=== PATIENT | female | born 2000 | race Caucasian/White ===

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

== ENCOUNTER 2025-10-27 01:26 | Inpatient (IN) ==
[2025-10-27] MEDS ORDERED: LIDOCAINE 1% LOCAL 20 ML VIAL INFIL PRN (02:28)
[2025-10-27 02:58] LABS: Hematocrit (blood only) 30.0 % (37.0-47.0); Hemoglobin 10.4 g/dL (12.0-16.0); Mean Corpuscular Hemoglobin 30.0 pg (25.0-34.0); Mean Corpuscular Volume 86.5 fL (80.0-100.0); Platelet Count 259 K/uL (130-400); RDW Standard Deviation 40.4 fL (36.4-46.3); Red Blood Count 3.47 M/uL (4.20-5.40); White Blood Count 12.58 K/ul (4.8-10.8)
--- NOTE | 2025-10-27 03:05 | History & Physical Report ---
Date of Service October 27, 2025 Assessment & Plan (1) Normal labor: Plan: Pt is a 24yo who presents at 39w3d with contractions. Amnisure negative Cvx /-1 per RN check (previously 3cm in office, rating pain at a 10), will admit for labor FHT reassuring Epidural PRN GBS neg, Rh pos, RI Anticipate History of Present Illness Chief Complaint: contractions, leaking fluid Primary Care Provider: Lizzeth Hines DO Patient is a 24yo who presents at 39w3d with leaking fluid and contractions. Via answering service phone call, patient had reported contractions every 10 minutes and concern for water leaking, states it was good amount of fluid. Reports she lost her mucus plug earlier in the day. Denies bleeding. +FM. complicated by: surrogacy using home insemination kit, threatened labor at 32 weeks (resolved), and cigarette use during . Allergies Allergy/AdvReac Type Severity Reaction Status Date / Time No Known Allergies Allergy Verified 10/27/25 01:49 Home Medications Medication Instructions Recorded Confirmed Type vitamins no.144-folic 1 tab PO DAILY 03/19/25 10/27/25 History acid 400 mcg chewable tablet () ferrous sulfate 325 mg (65 mg 325 mg PO Q OTHER DAY 09/11/25 10/27/25 History iron) tablet Patient History Medical History (Updated 10/27/25 @ 03:02 by Morelia Hagen MD) No known health problems Surgical History H/O dilation and curettage (2013) Family History Grandfather (Maternal) Diabetes Hypertension Mother Hypertension Social History Smoking Status: Current every day smoker Tobacco Type: Cigarettes Age Started Using Tobacco: 8; Cigarettes Per Day: 6; Second Hand Exposure: Yes; Hx Alcohol Use: No Hx Substance Use: No Preferred Language: French Communication Ability: Effective Director Of Strategic Initiatives Required: No Beliefs That Will Affect Care: None marital status: Single marital status details: Ritika Benito [phone] (Intended Mom) Current Living Situation: Family Current Living Situation Comment: lives with mom and 2 children, no pets. current occupational status: unemployed Other Information That Helps Us Care for You: No Feels Safe at Home: Yes Diet: regular Assistive Devices: Glasses Review of Systems see HPI Physical Exam Constitutional: WD/WN, vitals as above Genitourinary: Manual OB Exam: + cervical dilation (RN check) 5 cm, + cervical effacement 70% and + station -1 OB Exam Monitor Tracing: + external FHT monitor used, + external uterine monitor used and + category I Results & Data Vital Signs (Past 12 Hours) Vital Signs Temp Pulse Resp BP 10/27/25 01:55 85 109/59 L 10/27/25 01:50 36.6 C 20 Coding Level of Care Code None Diagnoses Normal labor O80; Z37.9
[2025-10-27] MEDS: LACTATED RINGER'S 1,000 ML IV PRN (04:27)
[2025-10-27] MEDS ORDERED: diphenhydrAMINE 50 MG/ML VIAL IV PRN (04:57)
[2025-10-27] MEDS ORDERED: ROPIVACAINE 0.5% PF 5 MG/ML 20 ML VIAL EPI PRN (04:57)
[2025-10-27] MEDS ORDERED: NALBUPHINE HCL INJ 10 MG/ML AMP IV PRN (04:57)
[2025-10-27] MEDS ORDERED: SODIUM CHLORIDE 0.9% PF INJ 10 ML VIAL EPI PRN (04:57)
[2025-10-27] MEDS ORDERED: ONDANSETRON INJ 2 MG/ML 2 ML VIAL IV PRN (04:57)
[2025-10-27] MEDS ORDERED: NALOXONE HCL 0.4 MG/1 ML VIAL/CARP IV PRN (04:57)
[2025-10-27] MEDS ORDERED: NALOXONE HCL 1 MG in SODIUM CHLORIDE 0.9% 1,000 ML IV PRN (04:57)
[2025-10-27] MEDS ORDERED: LIDOCAINE 2% MPF LOCAL 5 ML VIAL EPI PRN (04:57)
[2025-10-27] MEDS ORDERED: BUPIVACAINE 0.25% PF 30 ML VIAL EPI PRN (04:57)
--- NOTE | 2025-10-27 04:58 | Anesthesiology Consultation ---
Date of Service October 27, 2025 Assessment & Plan ASA ASA2 Proposed Anesthesia Anesthesia Type: Labor Epidural Risk / Benefits Reviewed With: PT / POA / Parent / Guardian, Accepts Plan and Informed Consent Obtained History Height/Weight Height: 5 ft 2 in Weight: 70.398 kg Allergies Allergy/AdvReac Type Severity Reaction Status Date / Time No Known Allergies Allergy Verified 10/27/25 01:49 Medications Home Medications Medication Instructions Recorded Confirmed Last Taken vitamins no.144-folic 1 tab PO DAILY 03/19/25 10/27/25 10/26/25 acid 400 mcg chewable tablet () ferrous sulfate 325 mg (65 mg 325 mg PO Q OTHER DAY 09/11/25 10/27/25 10/26/25 iron) tablet Active Medications Generic Name Dose Route Start Last Admin Trade Name Freq PRN Reason Stop Dose Admin Fentanyl/Bupivacaine/Sodium Chlor 100 ml 10/27/25 04:57 10/27/25 05:18 Fentanyl 2 Mcg/Ml Bupivacaine 0.125%-Nss 100ml Bag EPI 10/28/25 04:56 100 ml PRN PRN Administration Pain R/T Labor Protocol Lactated Ringer's 1,000 mls @ 125 mls/hr 10/27/25 02:28 10/27/25 05:04 Lr IV 10/29/25 02:27 125 mls/hr .Q8H PRN Infusion L&D Protocol Protocol Past Medical History Medical History No known health problems Exercise / Class Metabolic Activity II 4-5 Yardwork/Stairs/Walk up hill Past Family History Family History Grandfather (Maternal) Diabetes Hypertension Mother Hypertension Past Surgical History Surgical History H/O dilation and curettage (2013) Past Anesthesia History No Hx of Anesthesia Complications and No Family Hx of Anesthesia Complications History of PONV No Hx of PONV and No Hx of Motion Sickness Social History Smoking Status: Current every day smoker Smoking cigarettes per day: 6 Hx Alcohol Use: No Hx Substance Use: No substance use type: does not use and former substance user Last Used Substance Other:: states 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 Review of Systems denies fever/cough/ colds/ chest pain/ SOB/ RUTH ANN denies RUTH ANN Physical Exam Vital Signs Last Vital Signs Temp 36.6 C 10/27/25 01:50 Pulse 88 10/27/25 05:26 Resp 20 10/27/25 01:50 BP 109/63 10/27/25 05:24 Pulse Ox 96 10/27/25 05:26 ENMT Mouth: no TMJ abnormality and no dentition abnormality Thyromental Distance: > or= 3.5 Finger Breadths Mallampati Class: II Neck neck extension not limited Respiratory normal respiratory effort; no respiratory distress Auscultation: lungs clear to auscultation bilaterally Cardiovascular Rate/Rhythm: regular rate and regular rhythm Neurologic moves all extremities Psychiatric Orientation: alert and oriented x 3 Testing Laboratory Results 10/27/25 02:39
[2025-10-27] MEDS: fentANYL 2 MCG/ML BUPIVacaine 0.125%-NSS 100ML BAG EPI PRN (05:18)
[2025-10-27] MEDS: LIDOCAINE 2%/EPINEPHRINE 1:200,000 20 ML PF EPI STA (05:18)
[2025-10-27] MEDS: BUPIVACAINE 0.25% PF 30 ML VIAL EPI STA (05:18)
[2025-10-27] MEDS: fentANYL 2 MCG/ML BUPIVacaine 0.125%-NSS 100ML BAG ONE (07:06)
[2025-10-27] MEDS: SODIUM CHLORIDE 0.9% PF INJ 10 ML VIAL ONE (07:06)
[2025-10-27] MEDS: LIDOCAINE 2%/EPINEPHRINE 1:200,000 20 ML PF ONE (07:06)
[2025-10-27] MEDS: SODIUM CHLORIDE 0.9% PF INJ 10 ML VIAL EPI STA (07:06)
[2025-10-27] MEDS: BUPIVACAINE 0.25% PF 30 ML VIAL ONE (07:06)
--- NOTE | 2025-10-27 07:29 | Labor Progress Brief Note ---
Date of Service October 27, 2025 Subjective Comfortable with epidural. Assessment & Plan (1) Normal labor: Plan: Pt is a 24yo who presents at 39w3d admitted for labor. s/p AROM s/p epidural FHT reassuring Epidural PRN GBS neg, Rh pos, RI Anticipate Admission and Anticipated Discharge Date Admission Date: October 27, 2025 Physical Exam Constitutional: WD/WN, vitals as above Genitourinary: Manual OB Exam: + cervical dilation 7 cm, + cervical effacement 80% and + station -1 OB Exam Monitor Tracing: + external FHT monitor used, + external uterine monitor used and + category I AROM performed in normal sterile fashion with head well applied to cervix. Return of moderate clear fluid. Pt tolerated well. Results & Data Vital Signs (Past 12 Hours) Vital Signs Temp Pulse Resp BP Pulse Ox 10/27/25 07:21 81 98 10/27/25 07:19 88 122/62 10/27/25 07:16 75 98 10/27/25 07:11 84 98 10/27/25 07:06 83 97 10/27/25 07:04 72 115/60 10/27/25 07:01 87 97 10/27/25 06:56 82 97 10/27/25 06:51 72 97 10/27/25 06:49 76 113/61 10/27/25 06:46 88 98 10/27/25 06:43 75 94 10/27/25 06:41 83 97 10/27/25 06:36 82 98 10/27/25 06:35 85 113/58 L 10/27/25 06:31 76 98 10/27/25 06:26 89 98 10/27/25 06:21 85 98 10/27/25 06:19 88 102/55 L 10/27/25 06:16 86 97 10/27/25 06:11 87 97 10/27/25 06:06 88 97 10/27/25 06:02 91 H 103/57 L 10/27/25 06:01 90 97 10/27/25 05:56 77 98 10/27/25 05:55 84 117/67 10/27/25 05:51 83 99 10/27/25 05:50 78 112/61 10/27/25 05:46 86 97 10/27/25 05:45 84 137/57 L 10/27/25 05:41 96 10/27/25 05:41 86 10/27/25 05:41 85 100/57 L 10/27/25 05:36 86 102/52 L 97 10/27/25 05:31 85 101/51 L 96 10/27/25 05:26 88 96 10/27/25 05:24 92 H 109/63 10/27/25 05:22 87 105/60 10/27/25 05:21 88 97 10/27/25 05:20 89 103/60 10/27/25 05:18 85 109/64 10/27/25 05:16 97 10/27/25 05:16 96 H 10/27/25 05:16 93 H 125/67 10/27/25 05:14 84 127/70 10/27/25 05:11 78 99 10/27/25 05:06 75 100 10/27/25 05:01 77 95 10/27/25 04:56 76 95 10/27/25 04:51 75 96 10/27/25 04:46 86 95 10/27/25 04:41 72 96 10/27/25 04:36 78 96 10/27/25 04:31 82 96 10/27/25 04:26 86 96 10/27/25 01:55 85 109/59 L 10/27/25 01:50 36.6 C 20 Coding Level of Care Code None Diagnoses Normal labor O80; Z37.9
--- NOTE | 2025-10-27 08:01 | Labor Progress Brief Note ---
Date of Service October 27, 2025 Subjective Starting to feel pressure, but comfortable with epidural. FHT Cat 1 Hartrandt Q 2 SVE 7/100/0 Continue labor. Assessment & Plan Admission and Anticipated Discharge Date Admission Date: October 27, 2025 Results & Data Vital Signs (Past 12 Hours) Vital Signs Temp Pulse Resp BP Pulse Ox 10/27/25 07:56 79 97 10/27/25 07:51 76 98 10/27/25 07:49 78 125/73 10/27/25 07:46 78 98 10/27/25 07:41 81 97 10/27/25 07:36 75 97 10/27/25 07:34 86 127/73 10/27/25 07:31 83 99 10/27/25 07:30 20 10/27/25 07:30 36.6 C 20 10/27/25 07:26 86 97 10/27/25 07:21 81 98 10/27/25 07:19 88 122/62 10/27/25 07:16 75 98 10/27/25 07:11 84 98 10/27/25 07:06 83 97 10/27/25 07:04 72 115/60 10/27/25 07:01 87 97 10/27/25 06:56 82 97 10/27/25 06:51 72 97 10/27/25 06:49 76 113/61 10/27/25 06:46 88 98 10/27/25 06:43 75 94 10/27/25 06:41 83 97 10/27/25 06:36 82 98 10/27/25 06:35 85 113/58 L 10/27/25 06:31 76 98 10/27/25 06:26 89 98 10/27/25 06:21 85 98 10/27/25 06:19 88 102/55 L 10/27/25 06:16 86 97 10/27/25 06:11 87 97 10/27/25 06:06 88 97 10/27/25 06:02 91 H 103/57 L 10/27/25 06:01 90 97 10/27/25 05:56 77 98 10/27/25 05:55 84 117/67 10/27/25 05:51 83 99 10/27/25 05:50 78 112/61 10/27/25 05:46 86 97 10/27/25 05:45 84 137/57 L 10/27/25 05:41 96 10/27/25 05:41 86 10/27/25 05:41 85 100/57 L 10/27/25 05:36 86 102/52 L 97 10/27/25 05:31 85 101/51 L 96 10/27/25 05:26 88 96 10/27/25 05:24 92 H 109/63 10/27/25 05:22 87 105/60 10/27/25 05:21 88 97 10/27/25 05:20 89 103/60 10/27/25 05:18 85 109/64 10/27/25 05:16 97 10/27/25 05:16 96 H 10/27/25 05:16 93 H 125/67 10/27/25 05:14 84 127/70 10/27/25 05:11 78 99 10/27/25 05:06 75 100 10/27/25 05:01 77 95 10/27/25 04:56 76 95 10/27/25 04:51 75 96 10/27/25 04:46 86 95 10/27/25 04:41 72 96 10/27/25 04:36 78 96 10/27/25 04:31 82 96 10/27/25 04:26 86 96 10/27/25 01:55 85 109/59 L 10/27/25 01:50 36.6 C 20 Coding Level of Care Code None
[2025-10-27] MEDS: OXYTOCIN 30 UNITS/NSS 30 UNITS/500 ML BAG IV PRN (08:33)
[2025-10-27] MEDS: KETOROLAC 30 MG/ML VIAL ONE (08:37)
--- NOTE | 2025-10-27 08:44 | Delivery Summary ---
Vaginal Delivery Summary Date of Service October 27, 2025 Vaginal Delivery Summary [facility] Vaginal Delivery Summary: Pre-delivery diagnoses: 24yo @ 39 01/03, surrogacy , spontaneous labor Post-delivery diagnoses: same Procedure: spontaneous vaginal delivery Surgeon: Dejah Marques DO Complications: none Findings: Viable female . Apgars: 8/9 . Weight pending, please see nursery records Estimated QBL: 5cc Description of delivery: The patient progressed to complete with epidural anesthesia. She then began to push. She spontaneously vaginally delivered a viable from the cephalic presentation. The head delivered in MORGAN position. The anterior shoulder delivered, followed by the posterior shoulder, followed by the body. Nuchal x 1, easily reduced. The baby was placed on mother's abdomen and a spontaneous cry was heard. Delayed cord clamping was employed, and the cord was doubly clamped and cut. Cord blood was obtained. The placenta was delivered spontaneously intact with a 3-vessel cord. The uterus and vagina were swept of clots and debris. IV pitocin was given. The uterus became firm. The cervix, vagina, and perineum were inspected and no lacerations were noted. Excellent hemostasis was observed. The mother and baby are recovering in stable and good condition in the room. Sponge and instrument counts were correct x 2. Dejah Marques DO [facility] Vaginal Delivery Charge Vaginal Delivery Codes: 35966 global code for the antepartum, delivery, and post- Delivery Type Details: [facility]
[2025-10-27] MEDS ORDERED: OXYTOCIN 30 UNITS/NSS 30 UNITS/500 ML BAG IV PRN (10:05)
[2025-10-27] MEDS ORDERED: BENZOCAINE 20% SPRY 85 APPLN/85 GM CAN EXT PRN (10:05)
[2025-10-27] MEDS ORDERED: HYDROCORTISONE ACETATE 25 MG SUPP PR PRN (10:05)
[2025-10-27] MEDS: DIPHTHER/TETAN/PERTUS Vaccine (Tdap, Adol/Adult) 0.5mL IM ONE (10:15)
[2025-10-27] MEDS: KETOROLAC 30 MG/ML VIAL IV ONE (10:19)
[2025-10-27] MEDS: ACETAMINOPHEN 325 MG TAB PO PRN (10:32)
--- NOTE | 2025-10-27 10:44 | Anesthesia Procedure Note ---
Date of Service October 27, 2025 Anesthesia Post Epidural Note Vital Signs Vital Signs: Temp Pulse Resp BP Pulse Ox 36.6 C 57 L 18 109/63 100 10/27/25 07:30 10/27/25 10:19 10/27/25 09:49 10/27/25 10:19 10/27/25 08:36 Pain Intensity Lower Abdomen: Pain Intensity: 10 Notes Mental Status: alert / awake / arousable and participated in evaluation Patient Amnestic to Procedure: No Nausea / Vomiting: see Notes below Pain: adequately controlled Airway Patency, RR, SpO2: stable & adequate BP & HR: stable & adequate Hydration State: stable & adequate Neuraxial Anesthesia: was administered and sensory block is resolving Anesthetic Complications: no major complications apparent and Pt Satisfied with anesthetic care Epidural: Removed without complications and With tip intact
[2025-10-27] MEDS ORDERED: IBUPROFEN 600 MG TAB PO PRN (20:30)
[2025-10-28] MEDS: DOCUSATE SODIUM 100 MG CAP PO SCH (00:02)
[2025-10-28 04:40] VITALS: RESP 18
[2025-10-28 06:26] LABS: Hematocrit (blood only) 29.0 % (37.0-47.0); Hemoglobin 9.8 g/dL (12.0-16.0)
--- NOTE | 2025-10-28 06:52 | Obstetrical Progress Note ---
Date of Service October 28, 2025 Assessment & Plan (1) Surrogate : (2) care following vaginal delivery: Plan 24 yo GP32 post- day 1 s/p ; surrogate mother. Fells well today. Vital signs stable Continue post- care Encourage ambulation and Pain controlled with ibuprofen Hgb stable Discharge home today, follow up with Dr. Marques in 6 weeks. Admission and Anticipated Discharge Date Admission Date: October 27, 2025 Subjective 24 yo post- day 1 s/p ;surrogate mother. Ambulation: ambulating normally Voiding: no voiding problems Passing Gas:: Yes Diet Tolerance:: regular diet Lochia:: Small Feeding Type:: Surrogate mother. Current Pain Level:Slight pain. Resting comfortably this AM in NAD. Denies DUONG, CP, SOB, N/V/D, LE pain/swelling. Review of Systems Review of Systems: As per HPI. Physical Exam Physical Exam: General: patient resting comfortably, NAD, non-toxic in appearance, AA&O x 4, answers questions appropriately. Skin: warm, dry, intact HEENT: NC/AT, anicteric sclera, conjunctiva without injection, moist mucus membranes. Heart: +S1/S2, regular, no m/r/g Lungs: equal air entry bilaterally, no rales/rhonchi/wheezes Abd: +BS, soft, NT/ND, uterine fundus firm at umbilicus. Ext: warm, no clubbing/cyanosis or edema, Jaswant's neg. Results & Data Vital Signs (Past 12 Hours) Vital Signs Temp Pulse Resp BP Pulse Ox O2 Del Method 10/28/25 04:35 36.7 C 59 L 18 115/77 97 Room Air 10/28/25 00:00 36.8 C 60 16 105/66 96 Room Air 10/27/25 19:40 36.7 C 70 18 133/54 L 99 Room Air Resident Activity Tracking Resident Involvement: Resident Care Provided Care Provided: Adult Hospital Medicine Resident Supervision Co-Signing Physician Notes Resident Physician Supervision Note: I interviewed and examined the patient. Discussed with Dr. Marie and agree with findings and plan as documented in the note. Any exceptions or clarifications are listed here: PPD#1 doing well. No concerns. She would like to go home today, reviewed DC instructions. Would like Rx OCP - sent to pharmacy. She will stay until baby's discharge, she stated her comfort with her plan for intended parents to take baby home with them. Documented By: Dejah Marques, DO
[2025-10-28] MEDS: PRENATAL VITAMIN 1 TAB PO SCH (09:05)
[2025-10-28 09:17] VITALS: BP 110/73; PULSE 81; TEMP 98.2; O2SAT 98
== END 2025-10-28 09:50 | disposition home or self-care (01) | DRG 807 ==
LOC: OPB 01:26 → 4S1 01:32 → 4E2 11:46